=== PATIENT | male | born 1970 | race Caucasian/White ===

== ENCOUNTER 2017-05-27 22:36 | Emergency (ER) | payer OTHER ==
[~2017-05-27] VITALS: Ht 162.6 cm; Wt 98.9 kg
[2017-05-28 02:03] VITALS: BP 125/73
== END 2017-05-28 02:03 | disposition home or self-care (01) ==
LOC: ED 22:36
DX: M75.31 Calcific tendinitis of right shoulder (principal)
CPT/HCPCS: J1885